=== PATIENT | female | born 1945 | race Caucasian/White ===

== ENCOUNTER 2019-10-07 16:51 | Outpatient (CLI) | payer MEDICARE | END 2019-10-07 16:52 | disposition home or self-care (01) | LOC: COV 16:51 | PROVIDERS: ATTEND Family Medicine | DX: R05 Cough (principal) | CPT/HCPCS: 81599 ==

== ENCOUNTER 2021-01-03 12:20 | Outpatient (CLI) | payer MEDICARE ==
--- NOTE | 2021-01-03 14:25 | XRAY Report ---
PROCEDURE: Foot 3 View RT INDICATIONS: R FOOT PX TECHNIQUE: 3 views of the foot were acquired. COMPARISON: None FINDINGS: Bones: There is a nondisplaced fracture within the midportion of the fifth metatarsal. No suspicious bony lesions. Soft tissues: No tibiotalar joint effusion. Achilles tendon appears normal. IMPRESSION: Nondisplaced mid fifth metatarsal fracture. Reviewed by: Mary Figueroa MD on 01/03/2021 2:24 PM PDT Approved by: Mary Figueroa MD on 01/03/2021 2:24 PM PDT Station ID: [id number]
== END 2021-01-03 23:59 | disposition home or self-care (01) ==
LOC: DI.N 12:20
PROVIDERS: ATTEND Family Medicine
DX: S92.354A Nondisplaced fracture of fifth metatarsal bone, right foot, initial encounter for closed fracture (principal)